=== PATIENT | male | born 1975 | race Hispanic/Latino ===

== ENCOUNTER 2019-12-25 21:46 | Emergency (ER) | payer SELFPAY ==
[2019-12-25] MEDS ORDERED: NA CHLORIDE 0.9% 1,000 ML ONE (22:26)
[2019-12-25 22:53] LABS: Absolute Lymphocytes (CBC) 1.4 K/uL (0.7-4.9); Basophils % 0.4 % (0-1.3); Hematocrit 40.7 % (39.6-49.0); Lymphocytes % 11.3 % (15.3-44.8); RBC Red Blood Cell Count 4.68 M/uL (4.33-5.43)
[2019-12-25] MEDS ORDERED: ASPIRIN EC 81 MG TAB PO ONE (23:11)
[2019-12-25 23:28] LABS: Protime INR 0.87
[2019-12-25 23:38] LABS: ALT/SGPT 69 U/L (12-78); AST/SGOT 26 U/L (15-37); Albumin 3.7 g/dL (3.4-5.0); Alkaline Phosphatase 90 U/L (45-117); BUN Blood Urea Nitrogen 19 mg/dL (7-18); Bicarbonate 24 mmol/L (21-32); Bilirubin Direct < 0.1 mg/dL (0-0.2); Bilirubin Total 0.5 mg/dL (0.2-1.0); CKMB Creatine Kinase MB < 1.0 ng/mL (0.3-3.6); Creatine Phosphokinase 124 U/L (39-308); Glucose Level 125 mg/dL (74-106); Lipase 116 U/L (73-393); Magnesium 1.8 mg/dL (1.8-2.4); NT PRO-BNP 15 pg/mL (<125); Potassium 3.3 mmol/L (3.5-5.1); Protein, Total 7.7 g/dL (6.4-8.2); Sodium Level 138 mmol/L (136-145); Troponin (Emerg Dept Use Only) < 0.02 ng/mL (0.0-0.045)
--- NOTE | 2019-12-26 00:09 | ER ---
Nurse's Notes [facility] Name: Jean Whitmore III Age: 44 yrs Sex: Male : 1975 Arrival Date: 12/25/2019 Time: 21:47 Bed 7 Private MD: Diagnosis: Dyspnea;Anxiety disorder, unspecified;Essential (primary) hypertension;Hypokalemia Presentation: 12/24 21:52 Chief complaint: EMS states: Pt reports having SOB while watching TV, pt reported to [facility] EMS he was tested for covid yesterday and it was negative. EMS reported pt was afebrile, BGL 143, O2 at 100% room air, EKG NSR. Coronavirus screen: Proceed with normal triage. Ebola Screen: No symptoms or risks identified at this time. Initial Sepsis Screen: Does the patient meet any 2 criteria? No. Patient's initial sepsis screen is negative. Does the patient have a suspected source of infection? No. Patient's initial sepsis screen is negative. Risk Assessment: Do you want to hurt yourself or someone else? Patient reports no desire to harm self or others. Onset of symptoms was December 25, 2019. 21:52 Method Of Arrival: EMS: [facility] 21:52 Acuity: CURTIS 3 ea Triage Assessment: 21:58 General: Appears in no apparent distress. Behavior is anxious. Pain: Complains of pain ea in right lateral anterior chest and left lateral anterior chest Pain currently is 6 out of 10 on a pain scale. Pain began 4 hours ago. Neuro: Level of Consciousness is awake, alert, obeys commands, Oriented to person, place, time, situation. Respiratory: Reports shortness of breath Onset: The symptoms/episode began/occurred suddenly, the patient reports symptoms have resolved. Derm: Skin is pink, warm \T\ dry. Historical: - Allergies: 22:00 No Known Allergies; ea - Home Meds: 22:00 Lisinopril Oral [Active]; ea - PMHx: 22:00 Hypertension; ea - PSHx: 22:00 None; ea - Immunization history:: Adult Immunizations up to date. - Social history:: Smoking status: Patient reports the use of cigarette tobacco products, denies chronic smoking, but will smoke occasionally. Screenin:57 Abuse screen: Denies threats or abuse. Nutritional screening: No deficits noted. ea Tuberculosis screening: No symptoms or risk factors identified. Fall Risk IV access (20 points). Assessment: 22:00 General: Appears uncomfortable, Behavior is calm, cooperative, appropriate for age. ea Pain: Complains of pain in chest. Neuro: Level of Consciousness is awake, alert, obeys commands, Oriented to person, place, time, situation. Cardiovascular: Patient's skin is warm and dry. Cardiovascular: Rhythm is. Cardiovascular: Rhythm is sinus rhythm. Respiratory: Airway is patent Respiratory effort is even, unlabored, Respiratory pattern is regular, symmetrical. GI: Abdomen is non-distended. Derm: Skin is pink, warm \T\ dry. 23:00 Reassessment: Patient appears in no apparent distress at this time. Patient and/or jd3 family updated on plan of care and expected duration. Pain level reassessed. Patient is alert, oriented x 3, equal unlabored respirations, skin warm/dry/pink. 12/25 00:00 Reassessment: Patient appears in no apparent distress at this time. Patient and/or jd3 family updated on plan of care and expected duration. Pain level reassessed. Patient is alert, oriented x 3, equal unlabored respirations, skin warm/dry/pink. 01:00 Reassessment: Patient appears in no apparent distress at this time. Patient and/or jd3 family updated on plan of care and expected duration. Pain level reassessed. Patient is alert, oriented x 3, equal unlabored respirations, skin warm/dry/pink. Patient denies pain at this time. Patient states feeling better. Vital Signs: 12/24 21:52 BP 156 / 90; Pulse 93; Resp 20; Temp 98.4; Pulse Ox 100% on R/A; Weight 84.82 kg; ea Height 5 ft. 2 in. (157.48 cm); Pain 6/10; 12/25 00:09 BP 123 / 71; Pulse 70; Resp 18; Pulse Ox 99% ; ea 00:48 BP 123 / 77 LA (auto/lg); ds4 00:49 BP 122 / 73 RA (auto/lg); ds4 01:08 Pulse 72; Resp 17 S; Pulse Ox 99% on R/A; jd3 12/24 21:52 Body Mass Index 34.20 (84.82 kg, 157.48 cm) ea ED Course: 12/24 21:47 Patient arrived in ED. ds1 21:53 Carloz Harris MD is Attending Physician. kim 21:57 Triage completed. ea 21:57 Maintain EMS IV. Dressing intact. Good blood return noted. Site clean \T\ dry. Gauge \T\ ea site: 20 G RAC. 21:57 Patient has correct armband on for positive identification. Bed in low position. Call ea light in reach. 21:59 Arm band placed on right wrist. Patient placed in an exam room, on a stretcher, on ea pulse oximetry. 22:24 Thiago Santana, JAEL is Primary Nurse. jd3 22:51 XRAY Chest (1 view) In Process Unspecified. EDMS 23:32 Second set of blood cultures drawn by me. tt3 23:42 BMP Sent. ds4 23:42 Blood Culture Adult (2) Sent. ds4 23:42 Blood Culture Sent. ds4 12/25 00:08 Jerry Merritt MD is Referral Physician. kim 01:00 No provider procedures requiring assistance completed. IV discontinued, intact, jd3 bleeding controlled, No redness/swelling at site. Pressure dressing applied. Administered Medications: 12/24 22:42 Drug: NS 0.9% 1000 ml Route: IV; Rate: 1 bolus; Site: right antecubital; ea 23:40 Follow up: Response: No adverse reaction; IV Status: Completed infusion; IV Intake: jd3 1000ml 23:09 Drug: Aspirin Chewable Tablet 162 mg Route: PO; ea 12/25 00:00 Follow up: Response: No adverse reaction ea 00:51 CANCELLED (Inappropriate at this time): Lopressor 25 mg PO once ea 00:57 Drug: Potassium Effervescent Tablet 25 mEq Route: PO; jd3 01:00 Follow up: Response: No adverse reaction jd3 Intake: 12/24 23:40 IV: 1000ml; Total: 1000ml. jd3 Outcome: 12/25 00:08 Discharge ordered by . kim 01:00 Discharged to home ambulatory, with family. jd3 01:00 Condition: stable 01:00 Discharge instructions given to patient, Instructed on discharge instructions, follow up and referral plans. medication usage, Demonstrated understanding of instructions, follow-up care, medications, Prescriptions given X 1. 01:04 Patient left the ED. sg Signatures: Dispatcher [employer] Flo Avina, Carloz Musa RN, MD MD cha Sanford, Demi ds1 Ari Evangelista ds4 Nelly Muñiz RN RN ea Davies, Jonathon, RN RN jd3 Trim, Tyler tt3 Corrections: (The following items were deleted from the chart) 00:50 00:49 BP 122 / 73; ds4 ds4 01:10 01:09 Response: No adverse reaction jd3 jtaisha 01:50 01:00 Reassessment: Patient appears in no apparent distress at this time. Patient jd3 and/or family updated on plan of care and expected duration. Pain level reassessed. Patient is alert, oriented x 3, equal unlabored respirations, skin warm/dry/pink. jd3
--- NOTE | 2019-12-26 00:09 | EDPHYS ---
Physician Documentation [facility] Name: Jean Whitmore III Age: 44 yrs Sex: Male : 1975 Arrival Date: 12/25/2019 Time: 21:47 Bed 7 Private MD: ED Physician Carloz Harris HPI: 12/24 22:15 This 44 yrs old Male presents to ER via EMS with complaints of Shortness Of kim Breath, Dizziness. 22:15 The patient has shortness of breath with light activity. Onset: The symptoms/episode kim began/occurred 2 week(s) ago. Duration: The symptoms are intermittent, with no pattern. The patient's shortness of breath has no apparent modifying factors. Associated signs and symptoms: Pertinent positives: non-productive cough, dizziness. Severity of symptoms: At their worst the symptoms were mild in the emergency department the symptoms have improved mildly. The patient has experienced similar episodes in the past, multiple times, chronically. Historical: - Allergies: 22:00 No Known Allergies; ea - Home Meds: 22:00 Lisinopril Oral [Active]; ea - PMHx: 22:00 Hypertension; ea - PSHx: 22:00 None; ea - Immunization history:: Adult Immunizations up to date. - Social history:: Smoking status: Patient reports the use of cigarette tobacco products, denies chronic smoking, but will smoke occasionally. ROS: 22:17 Constitutional: Negative for fever, chills, and weight loss, Eyes: Negative for injury, kim pain, redness, and discharge, ENT: Negative for injury, pain, and discharge, Neck: Negative for injury, pain, and swelling, Cardiovascular: Negative for chest pain, palpitations, and edema, Abdomen/GI: Negative for abdominal pain, nausea, vomiting, diarrhea, and constipation, Back: Negative for injury and pain, : Negative for injury, bleeding, discharge, and swelling, MS/Extremity: Negative for injury and deformity, Skin: Negative for injury, rash, and discoloration, Neuro: Negative for headache, weakness, numbness, tingling, and seizure, Psych: Negative for depression, anxiety, suicide ideation, homicidal ideation, and hallucinations, Allergy/Immunology: Negative for hives, rash, and allergies, Endocrine: Negative for neck swelling, polydipsia, polyuria, polyphagia, and marked weight changes, Hematologic/Lymphatic: Negative for swollen nodes, abnormal bleeding, and unusual bruising. 22:17 Respiratory: Positive for shortness of breath, at rest. Exam: 22:17 Constitutional: This is a well developed, well nourished patient who is awake, alert, kim and in no acute distress. Head/Face: Normocephalic, atraumatic. Eyes: Pupils equal round and reactive to light, extra-ocular motions intact. Lids and lashes normal. Conjunctiva and sclera are non-icteric and not injected. Cornea within normal limits. Periorbital areas with no swelling, redness, or edema. ENT: Nares patent. No nasal discharge, no septal abnormalities noted. Tympanic membranes are normal and external auditory canals are clear. Oropharynx with no redness, swelling, or masses, exudates, or evidence of obstruction, uvula midline. Mucous membranes moist. Neck: Trachea midline, no thyromegaly or masses palpated, and no cervical lymphadenopathy. Supple, full range of motion without nuchal rigidity, or vertebral point tenderness. No Meningismus. Chest/axilla: Normal chest wall appearance and motion. Nontender with no deformity. No lesions are appreciated. Cardiovascular: Regular rate and rhythm with a normal S1 and S2. No gallops, murmurs, or rubs. Normal PMI, no JVD. No pulse deficits. Respiratory: Lungs have equal breath sounds bilaterally, clear to auscultation and percussion. No rales, rhonchi or wheezes noted. No increased work of breathing, no retractions or nasal flaring. Abdomen/GI: Soft, non-tender, with normal bowel sounds. No distension or tympany. No guarding or rebound. No evidence of tenderness throughout. Back: No spinal tenderness. No costovertebral tenderness. Full range of motion. Male : Normal genitalia with no discharge or lesions. Skin: Warm, dry with normal turgor. Normal color with no rashes, no lesions, and no evidence of cellulitis. MS/ Extremity: Pulses equal, no cyanosis. Neurovascular intact. Full, normal range of motion. Neuro: Awake and alert, GCS 15, oriented to person, place, time, and situation. Cranial nerves II-XII grossly intact. Motor strength 5/5 in all extremities. Sensory grossly intact. Cerebellar exam normal. Normal gait. Psych: Awake, alert, with orientation to person, place and time. Behavior, mood, and affect are within normal limits. 22:21 Musculoskeletal/extremity: Exam is negative for Extremities: all appear grossly normal, kim with no appreciated pain with palpation, DVT Exam: No signs of deep vein thrombosis. no pain, no swelling, no tenderness, negative Homans' sign noted on exam, no appreciated bluish discoloration, no erythema, no increased warmth. 22:56 ECG was reviewed by the Attending Physician. kim Vital Signs: 21:52 BP 156 / 90; Pulse 93; Resp 20; Temp 98.4; Pulse Ox 100% on R/A; Weight 84.82 kg; ea Height 5 ft. 2 in. (157.48 cm); Pain /; 12/25 00:09 BP 123 / 71; Pulse 70; Resp 18; Pulse Ox 99% ; ea 00:48 BP 123 / 77 LA (auto/lg); ds4 00:49 BP 122 / 73 RA (auto/lg); ds4 01:08 Pulse 72; Resp 17 S; Pulse Ox 99% on R/A; jd3 12/24 21:52 Body Mass Index 34.20 (84.82 kg, 157.48 cm) ea MDM: 12/24 21:53 Patient medically screened. kim 22:18 Differential diagnosis: Anxiety Reaction asthma, CHF exacerbation, pneumonia, pulmonary kim edema, Pulmonary Embolism reactive airway disease, Unstable Angina. Antibiotic administration: Not indicated. The patient's Wells Deep Vein Thrombosis Score was calculated as follows: Total Score: 0-2 Pts- Low Risk. The patient's pulmonary embolism risk score was calculated as follows: Total Score: 0-2 points. This patient was found to be at low risk for a pulmonary embolism by using the Well's assessment criteria. Immunization status:. Data reviewed: vital signs, nurses notes, lab test result(s), EKG, radiologic studies, plain films. Data interpreted: child monitor: rate is 93 beats/min, rhythm is normal sinus rhythm, Pulse oximetry: on room air is 100 %. Test interpretation: by ED physician or midlevel provider: ECG, plain radiologic studies. Counseling: I had a detailed discussion with the patient and/or guardian regarding: the historical points, exam findings, and any diagnostic results supporting the discharge/admit diagnosis, the presence of at least one elevated blood pressure reading (>120/80) during this emergency department visit, lab results, radiology results. 12/25 00:04 ED course: all labs reviewed, and follow up explained, pt will follow up or return if kim symptoms increase or persist. 12/24 22:00 Order name: Blood Culture Adult (2) 12/24 22:00 Order name: BMP 12/24 22:00 Order name: CBC with Diff; Complete Time: 23:14 12/24 22:00 Order name: Ckmb; Complete Time: 00:02 12/24 22:00 Order name: CPK; Complete Time: 00:02 12/24 22:00 Order name: D-Dimer; Complete Time: 00:02 12/24 22:00 Order name: Hepatic Function; Complete Time: 00:02 12/24 22:00 Order name: Lipase; Complete Time: 00:02 12/24 22:00 Order name: Magnesium; Complete Time: 00:02 12/24 22:00 Order name: NT PRO-BNP; Complete Time: 00:02 12/24 22:00 Order name: PT-INR; Complete Time: 00:02 12/24 22:00 Order name: Ptt, Activated; Complete Time: 00:02 12/24 22:00 Order name: Troponin (emerg Dept Use Only); Complete Time: 00:02 12/24 22:02 Order name: Blood Culture [facility] 12/24 22:00 Order name: EKG; Complete Time: 22:03 12/24 22:00 Order name: Cardiac monitoring; Complete Time: 22:43 12/24 22:00 Order name: EKG - Nurse/Tech; Complete Time: 22:43 12/24 22:00 Order name: IV Saline Lock; Complete Time: 22:43 12/24 22:00 Order name: Labs collected and sent; Complete Time: 22:43 12/24 22:00 Order name: O2 Per Protocol; Complete Time: 22:24 12/24 22:00 Order name: O2 Sat Monitoring; Complete Time: 22:24 12/24 22:01 Order name: XRAY Chest (1 view) 12/24 22:02 Order name: Basic Metabolic Panel; Complete Time: 00:02 [facility] 12/24 22:15 Order name: Urine Dipstick-Ancillary (obtain specimen); Complete Time: 00:57 kim 12/25 00:09 Order name: Bilateral blood pressure; Complete Time: 00:50 kim EC/03 22:56 Rate is 78 beats/min. Rhythm is regular. QRS Sharon is Normal. MS interval is normal. QRS kim interval is normal. QT interval is normal. No Q waves. T waves are Normal. No ST changes noted. Clinical impression: Normal ECG and No evidence of ischemia. Interpreted by me. Reviewed by me. Administered Medications: 22:42 Drug: NS 0.9% 1000 ml Route: IV; Rate: 1 bolus; Site: right antecubital; ea 23:40 Follow up: Response: No adverse reaction; IV Status: Completed infusion; IV Intake: jd3 1000ml 23:09 Drug: Aspirin Chewable Tablet 162 mg Route: PO; ea 12/25 00:00 Follow up: Response: No adverse reaction ea 00:51 CANCELLED (Inappropriate at this time): Lopressor 25 mg PO once 00:57 Drug: Potassium Effervescent Tablet 25 mEq Route: PO; jd3 01:00 Follow up: Response: No adverse reaction jd3 Disposition: 12/26/19 00:08 Discharged to Home. Impression: Dyspnea, Anxiety disorder, unspecified, Essential (primary) hypertension, Hypokalemia. - Condition is Stable. - Discharge Instructions: Panic Attacks, Potassium Content of Foods, Hypertension, Shortness of Breath, Shortness of Breath, [id number], Hypertension, [id number], Aspirin and Your Heart, Hypokalemia, Managing Your Hypertension. - Prescriptions for Toprol XL 25 mg Oral Tablet - take 1 tablet by ORAL route once daily; 20 tablet. - Medication Reconciliation Form, Thank You Letter, Antibiotic Education, Prescription Opioid Use form. - Follow up: Private Physician; When: 2 - 3 days; Reason: Recheck today's complaints, Continuance of care, Re-evaluation by your physician. Follow up: Jerry Merritt; When: 2 - 3 days; Reason: Recheck today's complaints, Re-evaluation by your physician. - Problem is new. - Symptoms have improved. Signatures: Dispatcher [employer] EDFlo Reyez RN RN sg Anderson, Corey, MD MD cha Antunez, Elena, RN RN ea Davies, Jonathon, RN RN jd3 Corrections: (The following items were deleted from the chart) 00:51 00:03 Lopressor 25 mg PO once ordered. kim godinez 01:04 00:08 12/26/2019 00:08 Discharged to Home. Impression: Dyspnea; Anxiety disorder, sg unspecified; Essential (primary) hypertension; Hypokalemia. Condition is Stable. Discharge Instructions: Panic Attacks, Hypertension, Shortness of Breath, Shortness of Breath, [id number], Hypertension, [id number], Aspirin and Your Heart, Managing Your Hypertension. Forms are Medication Reconciliation Form, Thank You Letter, Antibiotic Education, Prescription Opioid Use. Follow up: Private Physician; When: 2 - 3 days; Reason: Recheck today's complaints, Continuance of care, Re-evaluation by your physician. Follow up: Jerry Merritt; When: 2 - 3 days; Reason: Recheck today's complaints, Re-evaluation by your physician. Problem is new. Symptoms have improved. kim
[2019-12-26] MEDS ORDERED: POTASSIUM 25 MEQ EFFERV TAB ONE (01:00)
[2019-12-26 01:10] VITALS: TEMP 98.4
[2019-12-26 01:12] VITALS: O2SAT 99
[2019-12-26 01:14] VITALS: BP 122/73
--- NOTE | 2019-12-26 07:59 | RAD REPORT ---
EXAM DESCRIPTION: [place] Single View12/25/2019 10:50 pm CLINICAL HISTORY: Chest pain COMPARISON: none FINDINGS: The lungs appear clear of acute infiltrate. The heart is normal size IMPRESSION: No acute abnormalities displayed
--- NOTE | 2019-12-26 09:54 | EKG ---
Test Date: 2019-12-25 Test Time: 22:36:12 Veneer Sorter: TT MEASUREMENT RESULTS: Intervals: Rate: 78 AL: 132 QRSD: 80 QT: 384 QTc: 437 [place]: P: 45 AL: 132 QRS: 29 T: 17 INTERPRETIVE STATEMENTS: Normal sinus rhythm Normal ECG No previous ECG available for comparison Electronically Signed On 12-26-19 09:53:48 CDT by Jerry Merritt
== END 2019-12-26 01:04 | disposition home or self-care (01) ==
LOC: ER 21:46
DX: F41.9 Anxiety disorder, unspecified (principal); R06.00 Dyspnea, unspecified; I10 Essential (primary) hypertension; E87.6 Hypokalemia; F17.210 Nicotine dependence, cigarettes, uncomplicated
CPT/HCPCS: 36415; 71045; 80048; 80076; 82550; 82553; 83690; 83735; 83880; 84484; 85025; 85379; 85610; 85730; 87040; 93005; 96360; 99284; J7030